=== PATIENT | female | born 1985 | race Caucasian/White ===

== ENCOUNTER 2017-01-02 21:01 | Emergency (ER) | payer MEDICAID ==
[2017-01-02 21:23] VITALS: BP 119/61; PULSE 118; TEMP 99.6; BMI 20.5
[2017-01-02] MEDS ORDERED: RANITIDINE 150 MG TAB PO ONE (21:32)
[2017-01-02] MEDS ORDERED: GI COCKTAIL 30 ML DOSE PO ONE (21:32)
[2017-01-02] MEDS ORDERED: ONDANSETRON HCL 4 MG ODT TAB PO ONE (21:33)
--- NOTE | 2017-01-02 21:49 | EDPRACDOC ---
- General Information Chief Complaint: Sore Throat Stated Complaint: THROAT CLOSING Time Seen by Provider: 01/02/17 21:24 Information Source: Patient Home Medications: Home Medications Omeprazole [Prilosec] 40 mg PO DAILY #60 cap 01/02/17 Ranitidine HCl [Zantac] 150 mg PO DAILY #30 tablet 01/02/17 Allergies/Adverse Reactions: Allergies Allergy/AdvReac Type Severity Reaction Status Date / Time No Known Allergies Allergy Verified 01/02/17 21:23 - History of Present Illness Onset: 1.5 hours HPI: PT PRESENTS TODAY WITH PAIN IN THROAT. STATES THAT SHE ORDERED A MILKSHAKE FROM [employer] AND IT "KIND OF TASTED FUNNY, BUT I ATE IT ANYWAY". STATES SHORTLY AFTER FINISHING THE SHAKE, SHE BEGAN TO FEEL BURNING IN HER THROAT AND SHOB. PT IN NO APPARENT DISTRESS AT THIS TIME. DENIES PMH OF GERD. Sore Throat Symptoms: Reports: Pain Recent: Reports: Other Urinary Output: Normal Oral Intake: Normal Associated Signs and Symptoms: Reports: None ED Past Medical History - History Reviewed Yes Nurses notes reviewed and agree except as marked - Patient Medical History Psychological History: Denies: Depression Surgical History: Reports: Other (BTL) - Social Medical History Smoking Status: Heavy tobacco smoker (5 or more cigarettes/day or daily pipe/ cigar) EDM Review of Systems - Review of Systems ROS Negative Except as Marked: Yes All systems reviewed and were negative except as marked Constitutional: No Symptoms Reported Eyes: No Symptoms Reported Ears: No Symptoms Reported Throat: Pain Nose: No Symptoms Reported Respiratory: Shortness of Breath Cardiovascular: No Symptoms Reported Gastrointestinal: No Symptoms Reported Genitourinary: No Symptoms Reported Neurological: No Symptoms Reported Musculoskeletal: No Symptoms Reported Integumentary: No Symptoms Reported - Physical Exam Constitutional: Alert (Awake), No apparent distress Oriented to: Time, Person, Place Last recorded Vital Signs: Last Vital Signs Temp 99.6 F 01/02/17 21:19 Pulse 118 01/02/17 21:19 Resp 20 01/02/17 21:19 BP 119/61 01/02/17 21:19 Pulse Ox 99 01/02/17 21:19 Oxygen Pulse Oxygen Saturation 99 O2 Device Room Air Oxygen Flow Rate Fraction of Inspired Oxygen ( FIO2) - HEENT Head: Normal Eye Exam: Normal Oropharynx: Normal Tympanic Membrane: Normal ENT EAC: Normal Nose: No Symptoms Reported Neck: Normal, Denies Pain, Midline - Respiratory/Cardiovascular Respiratory: Normal - CTA Cardiovascular: Normal - GI Palpation: Normal Tenderness: Non tender - Musculoskeletal Back: Normal Extremities: Normal - Integumentary Skin: Normal Lymphatics: Normal - Neurologic Cerebellar: Normal Mood Description: Normal Thought: Coherent Perception: Normal - Additional Information BETTER AFTER MEDICATIONS. OK FOR HOME. Decision Time to Discharge: 21:50 - Departure Disposition: Home Condition: Good Final Diagnosis: Acid reflux Qualifiers: Esophagitis presence: esophagitis presence not specified Qualified Code(s): K21.9 - Gastro-esophageal reflux disease without esophagitis Instructions: Acid Reflux, Gastroesophageal Reflux in Children (ED) Education/Counseling Given To: Patient Education/Counseling Given Regarding: Diagnosis, Treatment, Follow Up Referrals: None,No Provider [Primary Care Provider] - One Week Armond Bowman MD [Staff Provider No Admit] - One Week Prescriptions: New Ranitidine HCl [Zantac] 150 mg PO DAILY #30 tablet Omeprazole [Prilosec] 40 mg PO DAILY #60 cap Additional Instructions: IF SYMPTOMS PERSIST PAST 1 MONTH, FOLLOW UP WITH GI.
== END 2017-01-02 22:05 | disposition home or self-care (01) ==
LOC: ED 21:01 → EDMC 22:05
DX: K21.9 Gastro-esophageal reflux disease without esophagitis (principal)
CPT/HCPCS: 99283; J3490